=== PATIENT | female | born 1955 | race Caucasian/White ===

== ENCOUNTER 2022-09-17 01:42 | Day surgery (SDC) | payer BC, SELFPAY ==
[2022-09-11 11:15] VITALS: BMI 24.8
--- NOTE | 2022-09-11 11:29 | PC.NURSE ---
Report to the Outpatient Waiting Room, entrance under the green pavilion located off [facility], at time ___0600____ on date __09/17/22 . Planned Procedure Time: ___729 . Time changes happen often and if your time is changed the preop area will call you the afternoon before. - You and your visitor will be asked to self-screen and do not enter if you have any COVID symptoms. - A mask is optional within the hospital at this time. Patients may have clear liquids (water, carbonated beverages, clear teas, apple juice) until 3 hours prior to surgery (0430 AM) with a maximum of 20 ounces. - No food from midnight until time of surgery - Infants may have breast milk until 4 hours before surgery, formula 6 hours prior to surgery. - Children will be allowed to drink immediately following surgery. If applicable, please bring a bottle or sippy cup to assist with drinking. Juice, water, soda, and popsicles are readily available. For infants on formula, please bring formula the day of surgery. Pacifiers are allowed. Take the following medications with a SIP of water the morning of surgery: _LEVOTHYROXINE__ DO NOT STOP ANY OF YOUR OTHER PRESCRIPTION MEDICATIONS PRIOR TO SURGERY ?EXCEPT THE FOLLOWING Medications to discontinue per ANESTHESIA - _MULTIVITAMIN, FISH OIL 3 DAYS PRIOR TO SURGERY, Date to take last dose 09/13/22_ Please no make-up, nail nigerian, hairspray, perfume, deodorant, or body powder the day of surgery. No jewelry (including any body piercings) or valuables the day of surgery, leave them at home. Please take a shower or bath the night before, or the morning of, surgery with an antibacterial soap. Wear comfortable, loose fitting clothing. Children are encouraged to wear pajamas. - Jewelry must be removed prior to entering the operating room. Rings and piercings that are not removed may be cut off. - The hospital will not accept responsibility for valuables. - Please leave all valuables, including medications, at home the day of surgery. If you are going home after surgery, a licensed front loader residential driver must drive you home. - NO public transportation without another adult if you receive anesthesia. - We recommend that an adult stay with you for 24 hours following discharge. - We also recommend that you do not drive, make important decision, drink alcoholic beverages, or take any drugs that were not prescribed by your health care provider for at least 24 hours after your discharge time. For Pediatric surgeries, we recommend two adults accompany the child home. Follow any additional instructions given to you from your surgeon. If you or anyone in your household have experienced Covid symptoms in the past week, please notify your surgeon or the nurse liaison at the phone number below for possible testing. Telephone instructions given to _PATIENT_and asked if any additional questions and then verbalized understanding. Patient advised to call surgeon office or pre surgery nurse liaison [phone] if any additional questions.
--- NOTE | 2022-09-14 18:43 | P.PNAN_ITS ---
Anes - Eval Pre Procedure Procedure: Operation Date: 09/17/22 07:30 Proposed Procedures p Left Hallux Valgus Correction with First Metatarsal Osteotomy, Possible Phalangeal Osteotomy, - Heber Schwarz MD s Second Crossover Toe Reconstruction - Heber Schwarz MD Date/Time: 09/14/22 18:43 Pre Op Diagnosis: left hallux valgus, crossover 2nd toe Patient Data Age: 67 Gender: F Height: 1.6 m Weight: 63.63 kg Allergies Allergy/AdvReac Type Severity Reaction Status Date / Time No Known Allergies Allergy Unverified 08/29/22 09:20 Home Medications Medication Instructions Recorded Confirmed Type ascorbate calcium (vitamin C) 500 500 mg PO DAILY 04/18/22 09/11/22 History mg tablet cholecalciferol (vitamin D3) 125 125 mcg PO DAILY 04/18/22 09/11/22 History mcg (5,000 unit) capsule (Dialyvite Vitamin D) coenzyme Q10 75 mg capsule (Ultra 75 mg PO DAILY 04/18/22 09/11/22 History CoQ10) esomeprazole magnesium 20 mg 20 mg PO DAILY PRN REFLUX 04/18/22 09/11/22 History capsule,delayed release estradiol 0.5 mg tablet 0.5 mg PO DAILY 04/18/22 09/11/22 History levothyroxine 88 mcg capsule 88 mcg PO DAILY 04/18/22 09/11/22 History multivitamin 1 tablet PO DAILY 04/18/22 09/11/22 History omega 5-amv-oab-fish oil 60 mg-90 1 cap PO DAILY 04/18/22 09/11/22 History mg-500 mg capsule (Fish Oil) progesterone micronized 100 mg 100 mg PO HS 04/18/22 09/11/22 History capsule Patient hx anesthesia problems: none Family hx anesthesia problems: none Results Review: All pre-operative results and documents have been reviewed as part of the pre- operative evaluation. 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
[2022-09-17] VITALS (9 sets, daily range): BP systolic 112–160; BP diastolic 61–81; PULSE 56–88; RESP 14–20; TEMP 36.7–36.8; O2SAT 93–100
--- NOTE | ~2022-09-17 | XR_ITS ---
EXAMINATION: XR surgery orthopedic DATE: 09/17/2022 09:08 INDICATION: Orthopedic procedure at the left foot for left foot pain TECHNIQUE: 4 fluoroscopic images of the left forefoot were obtained during procedure performed by Dr. Schwarz. Radiologist was not present for the imaging or procedure. The amount of fluoroscopy time us ed during this procedure was 0.1 minutes. COMPARISON: None. FINDINGS: Bunionectomy and realignment osteotomy at the head and neck of the left first metatarsal. Additional realignment osteotomy with medial sided staple fixation across the proximal metadiaphyseal region of the left first proximal phalanx. Near-anatomic alignment of the axis of the first ray. Correction of a prior crossover deformity of the left second toe now in near-anatomic alignment with instrumented a rthrodesis of the second proximal interphalangeal joint. There is a fixation device spanning the seco nd proximal interphalangeal joint space which is placed over an axially directed wire which extends f rom the tuft of the distal phalanx across the middle and proximal phalanges with the distal tip at th e level of the extending into the head of the second metatarsal. Shortening osteotomy at the neck of the second metatarsal with screw fixation. Expected small amount of gas at the now mildly widened sec ond metatarsophalangeal joint space. No other fractures identified. IMPRESSION: 1. Fluoroscopy utilized during orthopedic procedure in the left forefoot as detailed above. See proce dure note for further detail. Reviewed, dictated and finalized at location A. IMPRESSION: 1. Fluoroscopy utilized during orthopedic procedure in the left forefoot as det vishal above. See procedure note for further detail.
[2022-09-17] MEDS: ACETAMINOPHEN 500 MG TABLET 1000 MG PO (06:40)
[2022-09-17] MEDS: LACTATED RINGERS 1,000 ML 30 ML IV CONT ×2 (06:50→09:54)
--- NOTE | 2022-09-17 07:00 | P.PNAN_ITS ---
Anes - Eval Final PreProcedure Day of Procedure 09/17/22 07:00 Patient weight: normal Heart: regular rate and rhythm Lungs: clear to auscultation Airway: Mallampati scale class II Neurological: alert and oriented Last oral intake: >/= 8 hours ASA classification: II Emergent: no Anesthetic plan: proceed Anesthesia type and monitoring: general LMA and standard monitoring Results Review: All pre-operative results and documents have been reviewed as part of the pre- operative evaluation. Informed Consent: The patient's anesthetic plan and its attendant risks and benefits were discussed with the patient/family/POA. Questions were solicited and answers provided to the satisfaction of the patient/family/POA.
[2022-09-17] MEDS: KETOROLAC 15 MG/ML VIAL (*BKC) IV PUSH (07:15)
--- NOTE | 2022-09-17 07:31 | WPDHPUPDATE1 ---
History and Physical Update Update Date/Time: 09/17/22 07:31 History and Physical has been reviewed, including an updated exam of the patient. There are NO changes in the patient's condition. Risks, benefits, and alternatives have been discussed and questions answered. Patient agrees to proceed with procedure.
[2022-09-17] MEDS: ceFAZolin 2 GM/D5W 50 ML 2 GM/50 ML BAG IVPB (07:36)
[2022-09-17] MEDS: BUPivacaine HCL 0.5% 10 ML AMP 20 ML INFILTRATE (08:05)
--- NOTE | 2022-09-17 09:18 | W.PM.PROC2 ---
Procedure Note - Detailed Date of Procedure 09/17/22 Pre-op Diagnosis left hallux valgus, crossover 2nd toe Post-op Diagnosis Same Procedure Performed Left hallux valgus correction with double osteotomy, 2nd toe reconstruction with metatarsal osteotomy proximal interphalangeal arthrodesis. Surgeon Heber Schwarz MD [employer] assistant account manager Anesthesia General Indications 67-year-old woman with left hallux and 2nd toe deformity. Difficulty with shoe wear. Problems with weight-bearing and daily activity. Failed non operative treatment and presents now for operative treatment. Description of Procedure After informed consent was given, the operative extremity was marked in the preoperative holding area. The patient received intravenous antibiotics.? The patient was brought to the operating room where they underwent a general anesthetic by the anesthesia team.? The patient was positioned supine on the operating room table.? A time-out was performed confirming the patient, site of the surgery, and the plan for surgery. The left lower extremity was then prepped and draped in the usual sterile surgical fashion using ChloraPrep skin solution. Foot and ankle were exsanguinated and a calf tourniquet was inflated to 225 mmHg pressure.? A longitudinal incision was then made along the medial border of the 1st ray centered over the medial eminence with a #15 blade knife. Hemostasis was controlled with electric cautery.? The dorsal and plantar sensory nerves were identified and retracted bluntly.? A medial capsulotomy was then performed. This was reflected off the medial eminence.? The joint was inspected for evaluation of degenerative changes. A lateral release was then performed through the joint with a #15 blade knife.? The medial eminence was then resected with a sagittal saw in line with the medial border of the foot. Correction of the deformity was performed with a chevron-shaped osteotomy performed with sagittal saw from medial to lateral through the distal portion of the 1st metatarsal.? The lateral portion of the bone cut was completed with an osteotome to protect the soft tissue. The capital fragment was then translated laterally and impacted on to the 1st metatarsal shaft.? Lateral translation and impaction corrected both hallux valgus deformity and correction of the distal metatarsal articular angle.? Temporary fixation was performed and alignment was verified with image intensification.? Hallux valgus angle correction, intermetatarsal angle correction and distal metatarsal articular angle were verified. Fixation was achieved with 2.0 millimeter bioabsorbable pins. Two pins were utilized. Image intensification confirmed final alignment.? Rotation was verified visually.? The wound was then thoroughly irrigated with antibiotic solution. The capsule was repaired through a drill hole in the distal 1st metatarsal with 0 Vicryl interrupted suture.? The dorsal limb of the capsule was repaired with 00 Vicryl interrupted suture.? Subcutaneous tissue was repaired with 000 Monocryl interrupted suture and the skin approximated with 0000 nylon running suture. Local anesthetic with 0.5% Marcaine plain was injected in the soft tissue. ? Clinically and fluoroscopically there was still hallux valgus interphalangeus present.? Proximal phalanx osteotomy was indicated.? Medial incision made along the proximal phalanx with 15 blade knife.? Hemostasis controlled electrocautery.? Dissection down to the medial aspect of the proximal phalanx.? Retractors placed.? Sagittal saw used to make a medial closing wedge osteotomy transversely across the proximal phalanx.? Image intensification confirmed placement of the osteotomy.? Fixation was achieved with the Arthrex 10 millimeter x 9 millimeter staple.? Good stability and fixation were noted.? Image intensification confirmed final alignment of the osteotomy and placement of the hardware.? Overall alignment of the 1st ray was verified.? Wound was thoroughly
[2022-09-17] MEDS: oxyCODONE HCL (*CRX) 5 MG TAB IR PO (10:13)
== END 2022-09-17 11:00 | disposition home or self-care (01) ==
PROVIDERS: Visit Provider Orthopaedic Surgery
PROC: (CPT 28299; principal; 2022-09-17 07:30)
PROC: (CPT 28299; 2022-09-17 07:30)
DX: M20.12 Hallux valgus (acquired), left foot (principal); M20.5X2 Other deformities of toe(s) (acquired), left foot; E03.9 Hypothyroidism, unspecified
CPT/HCPCS: 28299; 28285; 99199; A9270; C1713; J0690; J1100; J1885; J2250; J2405; J2704; J3010; J7120